=== PATIENT | female | born 2000 | race African-American/Black ===

== ENCOUNTER 2024-09-09 01:02 | Emergency (ER) | payer SELFPAY ==
[~2024-09-09] VITALS: Ht 167.6 cm; Wt 61.0 kg
[2024-09-09 01:19] VITALS: O2SAT 100
[2024-09-09] MEDS ORDERED: ONDANSETRON HCL 4MG/2ML INJ IV ONE (01:30)
[2024-09-09 02:23] LABS: BASOPHILS % 0.3 % (0.0-2.0); EOSINOPHILS % 0.4 % (0.0-5.0); HEMATOCRIT. 33.4 % (36.0-48.0); HEMOGLOBIN. 10.4 g/dL (12.0-16.0); LYMPHOCYTES % 17.6 % (20.0-50.0); MEAN CORPUSCULAR HEMOGLOBIN 27.2 pg (28.0-32.0); MEAN CORPUSCULAR VOLUME 87.8 fL (81.0-99.0); MONOCYTES % 8.8 % (2.0-8.0); NEUTROPHILS % 72.9 % (40.0-76.0); PLATELET 299 x1000/uL (130-400); RED BLOOD CELL COUNT 3.81 mill/uL (4.2-5.4); RED CELL DISTRIBUTION WIDTH 18.1 % (11.6-14.6); WHITE BLOOD COUNT 7.4 x1000/uL (4.5-11.0)
[2024-09-09 02:27] LABS: CHLORIDE 107 mEq/L (98-107); POTASSIUM 3.3 mEq/L (3.5-5.1); SODIUM 141 mEq/L (136-145)
[2024-09-09 02:28] LABS: CALCIUM 8.4 mg/dL (8.7-10.4); CARBON DIOXIDE 20 mEq/L (21-32)
[2024-09-09 02:29] LABS: HCG SCREEN NEGATIVE
[2024-09-09 02:33] LABS: CREATININE 0.7 mg/dL (0.6-1.0); ETHANOL BLOOD 215 mg/dL (<10); GLUCOSE 104 mg/dL (70-105); UREA NITROGEN BLOOD 8 mg/dL (9-23)
[2024-09-09] MEDS ORDERED: ONDANSETRON HCL 4MG/2ML INJ IV SCH (03:30)
[2024-09-09] MEDS: SODIUM CHLORIDE 0.9% 1,000 ML IV ONE (03:32)
[2024-09-09] MEDS ORDERED: ONDA4TAB50 MT (05:34)
[2024-09-09 05:51] VITALS: BP 119/81; PULSE 96; RESP 15; TEMP 36.7; O2SAT 100
== END 2024-09-09 05:53 | disposition home or self-care (01) ==
LOC: ER 01:02
DX: F10.129 Alcohol abuse with intoxication, unspecified (principal); R11.2 Nausea with vomiting, unspecified; Y90.7 Blood alcohol level of 200-239 mg/100 ml
CPT/HCPCS: 80048; 80320; 84703; 85025; 36415; 96360; 99283; J7030; Z7610 ×2; G0480